=== PATIENT | male | born 1980 | race African-American/Black ===

== ENCOUNTER 2021-04-28 21:31 | Emergency (ER) | payer OTHER, SELFPAY ==
[2021-04-28 21:33] VITALS: BP 155/97; PULSE 99; RESP 20; TEMP 36.6; O2SAT 98; BMI 37.3
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
[2021-04-28] MEDS: Lidocaine 1% (20 ml mdv) 20 ML Vial 10 ML INFILT (22:00)
[2021-04-28] MEDS: Lidocaine/Epi/Tetracaine 50 ML 1 APPLIC TOPICAL (22:10)
[2021-04-28] MEDS: Cephalexin 250 MG Capsule 500 MG PO (23:43)
[2021-04-28] MEDS: Acetaminophen 500 MG Tablet 1000 MG PO (23:43)
== END 2021-04-28 23:46 | disposition home or self-care (01) ==
PROVIDERS: Emergency Provider Emergency Medicine; PCP Family Medicine
DX: S62.501A Fracture of unspecified phalanx of right thumb, initial encounter for closed fracture (principal); S61.011A Laceration without foreign body of right thumb without damage to nail, initial encounter; I10 Essential (primary) hypertension; X58.XXXA Exposure to other specified factors, initial encounter; Z79.899 Other long term (current) drug therapy; Z87.891 Personal history of nicotine dependence
CPT/HCPCS: 12001; 99285

== ENCOUNTER 2025-09-14 10:51 | Emergency (ER) | payer OTHER, SELFPAY ==
[2025-09-14 10:52] VITALS: BP 198/122; PULSE 65; RESP 16; TEMP 36.6; O2SAT 100; BMI 34.7
--- NOTE | 2025-09-14 11:06 | RAD_ITS ---
PROCEDURE: RAD/Hand Min 3 Views
--- NOTE | 2025-09-14 11:20 | EX.ED.UPPERE ---
HPI History of Present Illness Chief Complaint: Upper Extremity Injury Narrative Narrative: Chief complaint and HPI: 44-year-old male with past medical history of HTN presents from work for evaluation of left middle finger injury. Patient states that he was helping load a wire onto a machine when the wire coiled/wrapped around his left distal middle finger. He pulled his finger to remove it from the wire. He obtained a degloving injury to the distal finger. He was seen at [facility] for post-accident testing. He denies injury elsewhere. Denies any numbness or tingling. Endorses pain in the finger. Unknown last tetanus. Review of systems: See HPI Medications: As listed on the chart Allergies: As listed on the chart PFSH: Per chart Vital signs: As listed on the chart. Reviewed. Physical exam: Gen: A&O x3, NAD Head: Normocephalic, atraumatic Eyes: No sclera icterus, conjunctiva clear ENT: Moist mucous membranes CV: Regular rate Resp: Nonlabored respiration Musc: Full range of motion of the left upper extremity including the wrist, hand, and all fingers. Radial pulse +2. Sensation intact. Good capillary refill in all the fingers except for the left middle finger as I am unable to test it given the distal degloving injury from the fingertip to the DIP joint. Skin and nail is missing however tissue is overlying the bone. Area is tender to palpation over injury otherwise fingers and hand nontender. Psych: Cooperative, appropriate mood and affect [facility] Medical History (Updated 09/14/25 @ 11:06 by Evelin Knox) Hypertension Home Medications ?Medication ?Instructions ?Recorded ?Last Taken ?Type amlodipine 10 mg tablet 10 mg PO DAILY 04/28/21 Unknown History cephalexin 500 mg capsule 1,000 mg (2 x 500 mg) PO BID 7 04/28/21 Unknown Rx days #28 caps losartan 25 mg tablet 25 mg PO DAILY 04/28/21 Unknown History Allergy/AdvReac Type Severity Reaction Status Date / Time lisinopril AdvReac Other Verified 09/14/25 10:54 Social History Smoking Status: Current every day smoker tobacco type: cigarettes EXAM Physical Exam Const Vital Signs: 09/14/25 10:52 Temperature 97.9 F Temperature Source Oral Pulse Rate 65 Respiratory Rate 16 Blood Pressure 198/122 H Blood Pressure Mean 147 Pulse Ox 100 Oxygen Delivery Method Room Air MDM MDM MDM Narrative Medical decision making narrative: 44-year-old male with past medical history of HTN presents from work for evaluation of left middle finger injury. Patient states that he was helping load a wire onto a machine when the wire coiled/wrapped around his left distal middle finger. He pulled his finger to remove it from the wire. He obtained a degloving injury to the distal finger. See physical exam findings. Differential diagnosis includes but is not limited to degloving injury, fracture. X-ray of the left hand obtained. Morphine, Zofran, Ancef given for the symptoms and antibiotic prophylaxis. Tetanus updated. Dr. Guidry with plastic surgery was consulted. Currently in the OR therefore I spoke to his nursing staff. X-ray of the hand was personally reviewed and interpreted by me, ED physician. Patient has an avulsion fracture of the tuft of the distal phalanx with soft tissue laceration. This is an open fracture. Ancef already given. Dr. Guidry is not on for hand call at this time and is unable to take care of the patient. Therefore he will require transfer. Basic labs ordered. [facility] was contacted and they spoke with hand orthopedic surgeon Dr. Gaines. He accepted transfer ED to ED. Patient was updated of all the results and confirmed understanding of the plan. Laboratory workup pending at this time. Patient's finger was wrapped and splinted with finger splint. Impression: 1. Left distal middle finger degloving injury 2. Left open tuft fracture of the distal phalanx of the left middle finger 3. Injury at work Discharge Plan Triage Chief Complaint: Upper Extremity Injury ED Provider: Jose De Jesus Berger Dx/Rx/DC Orders Prescriptions: No Action amlodipine 10 mg tablet 10 mg PO DAILY Patient Comments: TAKE 1 TABLET BY MOUTH EVERY DAY losartan 25 mg Tablet 25 mg PO DAILY cephalexin 500 mg capsule 1,000 mg PO BID 7 Days Qty: 28 0RF Primary Care Provider: Romel Tovar Referrals: Romel Tovar MD [Primary Care Provider, Family Practice] Print Language: Georgian
[2025-09-14] MEDS: Cefazolin 2 GM in 0.9% Normal Saline (100mL Bag) 100 ML IV (11:32)
[2025-09-14 12:31] LABS: Hematocrit 46.1 % (40-54); Hemoglobin 15.4 g/dL (13.0-16.5); Immature Granulocytes Count 0.070 X10^3/uL (0.0-0.0); Mean Corp Hgb Conc 33.4 g/dL (32-36); Mean Corpuscular Volume 89.0 fL (80-94); Mean Platelet Vol. 11.3 fl (6.2-12.0); NRBC Flagged by Analyzer 0 % (0-5); Platelet Count 237 K/mm3 (150-450); RBC Distribution Width CV 12.8 % (11.6-14.6); RBC Distribution Width SD 41.7 fl (35.1-43.9); Red Blood Count 5.18 M/mm3 (4.6-6.2); White Blood Count 9.7 K/mm3 (4.4-11.0)
[2025-09-14 12:44] LABS: Anion Gap 10 (5-15); BUN 9 mg/dL (4-19); BUN/Creat Ratio 7.6 RATIO (10-20); Calcium,Total 8.9 mg/dL (7.6-11.0); Carbon Dioxide 25.7 mmol/L (21.0-32.0); Chloride 104 mmol/L (98-108); Estimated Creatinine Clearance 100.24 ml/min (50-250); Glucose 121 mg/dL (70-99); Potassium 4.0 mmol/L (3.3-5.1)
[2025-09-14 12:51] VITALS: BP 180/121; PULSE 70; RESP 18; TEMP 36.6; O2SAT 98
== END 2025-09-14 13:38 | disposition short-term general hospital (02) ==
LOC: ED 11:48
PROVIDERS: Emergency Provider Surgery; PCP Family Medicine; Visit Provider Surgery
DX: S62.633B Displaced fracture of distal phalanx of left middle finger, initial encounter for open fracture (principal); I10 Essential (primary) hypertension; N28.9 Disorder of kidney and ureter, unspecified; F17.210 Nicotine dependence, cigarettes, uncomplicated; Z23 Encounter for immunization; Y99.0 Civilian activity done for income or pay
CPT/HCPCS: 73130; 80048; 85025; 90471; 90715; 96365; 96375; 96376; 99285; A4216; J2405